=== PATIENT | female | born 1960 | race Caucasian/White ===

== ENCOUNTER 2021-02-10 12:48 | Outpatient (CLI) | payer OTHER, SELFPAY ==
[2021-02-10 13:29] VITALS: BP 156/80; PULSE 83; RESP 16; TEMP 36.9; O2SAT 97; BMI 25.8
[2021-02-10 13:46] VITALS: BP 168/94; PULSE 82; RESP 18; TEMP 36.9; O2SAT 97
[2021-02-10 14:49] VITALS: BP 175/88; PULSE 87; RESP 16; TEMP 36.9; O2SAT 98
== END 2021-02-10 12:49 | disposition home or self-care (01) ==
LOC: OPS 12:52
PROVIDERS: PCP Family Medicine; Visit Provider Family Medicine
DX: U07.1 COVID-19 (principal)
CPT/HCPCS: 96365